=== PATIENT | male | born 1945 | race Caucasian/White ===

== ENCOUNTER 2024-03-30 12:22 | Day surgery (SDC) | payer MEDICARE, OTHER, SELFPAY ==
[2024-03-30] VITALS (26 sets, daily range): BP systolic 97–161; BP diastolic 54–92; BMI 36.6
[2024-03-30 08:34] LABS: % Basophils 0.5 % (0-2); % Immature Granulocytes 0.3 % (0-0.5); % Monocytes 7.6 % (1.7-9.3); % Neutrophils 57.6 % (42.2-75.2); Absolute Basophils 0.1 10^3/uL (0-0.2); Absolute Eosinophils 0.1 10^3/uL (0-0.7); Absolute Monocytes 0.7 10^3/uL (0.1-0.6); Absolute Neutrophils 5.2 10^3/uL (1.4-6.5); Hematocrit 44.4 % (39.0-52.0); Hemoglobin 15.7 g/dL (13.0-18.0); Mean Corp Hgb Conc. 35.4 g/dL (33.0-37.0); Mean Corpuscular Hgb 33.4 pg (27.0-31.0); Mean Corpuscular Volume 94.5 fL (80.0-94.0); Mean Platelet Volume 10.1 fL (7.4-10.4); Nucleated Red Blood Cells % 0 % (-); Platelet Count 178 10^3/uL (130-400); Red Cell Dist. Width 12.8 % (11.5-14.5); White Blood Cell Count 9.1 10^3/uL (4.8-10.8)
[2024-03-30] MEDS: NITROSTAT (SUBLINGUAL) 0.400000000000000022 MG SL (08:37)
[2024-03-30] MEDS: NITRO-BID 1 INCH TOPICAL (08:45)
--- NOTE | 2024-03-30 09:03 | PHANOTE ---
MED REC NOTE- CALLED PATIENT PCP AT [phone] SPOKE TO PATTI AND ASKED HER TO FAX PATIENT MEDICATION LIST OVER TO THE ED FAX MACHINE. AWAITING FAX TO BE SPENT
[2024-03-30 09:11] LABS: ALT (SGPT) 39 U/L (0-50); AST (SGOT) 37 U/L (17-59); Albumin 4.1 g/dl (3.5-5.0); Alkaline Phosphatase 100 U/L (38-126); Blood Urea Nitrogen 23 mg/dl (9-20); Calcium 9.6 mg/dl (8.4-10.2); Carbon Dioxide 27 mmol/L (22-30); Chloride 106 mmol/L (98-107); Estimated Creatinine Clearance 59 ml/min; Glucose 134 mg/dl (70-99); Potassium 4.7 mmol/L (3.5-5.1); Sodium 142 mmol/L (135-145); Total Bilirubin 0.5 mg/dl (0.2-1.3); Total Protein 6.3 g/dl (6.3-8.2); Troponin I < 0.012 ng/ml; eGFR 52.09
--- NOTE | 2024-03-30 09:57 | ED.GENMED ---
History of Present Illness
General
Chief Complaint: Chest Pain
Source: patient
Time Seen by Provider: 03/30/24 08:24
Travel History
Have you had any contact with someone who has COVID-19?: No
Do you have any symptoms of coronavirus? Fever > 100 degrees, chills, cough, shortness of breath, sore throat, loss of taste or smell, muscle aches, or headache?: No
History of Present Illness
History of Present Illness:
78-year-old male who presents with chest pain. Has been ongoing since Tuesday. Patient reports tightness in his chest as well as in his right bicep and in his throat. The patient states it feels similar to the way he felt when he had a stent in
the past. He denies shortness of breath. No palpitations. The pain waxes and wanes. He was sent by his customer engineering specialist for evaluation and saw him this morning. The patient states he has been taking nitroglycerin off and on which does seem to help
the pain. No vomiting. No back pain.
Past History
Past History
ED Past Medical History: CAD, HTN, Hypercholesterolemia and NIDDM
Phy Exam
Physical Exam
Physical Exam:
CONSTITUTIONAL Patient alert and oriented to person, place and time. Well-appearing. Vital signs reviewed. Obese
HEAD atraumatic, normocephalic.
EYES eyelids normal to inspection, Extraocular muscles intact, Conjunctiva normal, Sclera normal.
NECK normal range of motion, Trachea midline, no jugular venous distention.
RESPIRATORY CHEST No respiratory distress noted, Chest expansion equal, Bilateral breath sounds clear.
CARDIOVASCULAR regular rate and rhythm, Heart sounds normal.
ABDOMEN abdomen nontender, Bowel sounds normal. No distention.
BACK normal inspection, no obvious deformities
UPPER EXTREMITY range of motion normal, Motor strength normal, no cyanosis, no edema.
LOWER EXTREMITY range of motion normal, Motor strength normal, no cyanosis, no edema.
NEURO Speech normal, No focal motor deficits, Denis coma scale 15, Memory normal, Cranial Nerves intact to screening exam.
SKIN skin warm, dry, and normal in color.
PSYCHIATRIC patient oriented to person place and time, Normal affect.
Scores
Heart Score for Chest Pain Patients
STEMI patient?: No
History: Highly Suspicious
ECG: Nonspecific Repolarization
Age: >/= 65 years
Risk Factors: >/= 3 Risk Factors or History of CAD
Troponin: </= Normal Limit
Heart Score for Chest Pain Patients: 7
Heart Score Risk: 72.7 % MACE over next 6 weeks
Course
Orders/Labs/Results
Orders:
Orders
03/30/24 08:06
Electrocardiogram (*1) Urgent
Reason for Study: Chest Pain
EKG- Treatment ONCE
03/30/24 08:28
Complete Blood Count/With Diff Urgent
Comprehensive Metabolic Panel Urgent
Troponin I Urgent
03/30/24 08:30
Nitroglycerin Sublingual [Nitrostat (Sublingual)] 1.2 mg .ROUTE .STK-MED ONE
03/30/24 08:33
Nitroglycerin Ointment [Nitro-Bid] 1 inch TOPICAL NOW STA
Nitroglycerin Sublingual [Nitrostat (Sublingual)] 0.4 mg SL [id number] PRN
03/30/24 08:34
CR Chest Portable - 1 View Urgent
Comment:
Reason For Exam: cp
Reason Study Needs to be Portable: Unable to Transport
03/30/24 09:57
Aspirin 325 mg PO NOW STA
03/30/24 Lunch
Cholesterol Lowering
At Your Request: Full Participation
Cholesterol Lowering: Sodium, 2 Gram
03/30/24 10:16
Fentanyl Citrate/Pf [Sublimaze] 100 mcg .ROUTE .STK-MED ONE
Midazolam HCl [Versed] 2 mg .ROUTE .STK-MED ONE
Verapamil Injectable [Isoptin/Verapamil Injection] 5 mg .ROUTE .STK-MED ONE
03/30/24 10:17
Heparin 10,000 units .ROUTE .STK-MED ONE
Heparin 1000 Units/500 ml [Heparin] 1,000 units in 500 ml .ROUTE .STK-MED
Heparin Sodium,Porcine/Ns/Pf [Heparin 2000 Units/1000 ml] 2,000 unit in 1,000 ml .ROUTE .STK-MED
Lidocaine HCl/Pf [Xylocaine-Mpf 1% Vial] 50 mg .ROUTE .STK-MED ONE
Nitroglycerin [Tridil] 1,500 mcg .ROUTE .STK-MED ONE
03/30/24 11:04
Lidocaine HCl/Pf [Xylocaine-Mpf 1% Vial] 50 mg .ROUTE .STK-MED ONE
03/30/24 11:25
Ticagrelor [Brilinta] 180 mg .ROUTE .STK-MED ONE
03/30/24 11:50
Admit Patient As Directed
Co-Sign Provider:
Level of Care: Post Proc/Surg Recovery
Assign to:: IVU
Physician / Group: cbc
Diagnosis: ACS
Reason for Overnight Stay: Standard of Care
Electrocardiogram (*1) Urgent
Reason for Study: Other
Other Reason for Exam: s/p intervention
Comment: cbc
CARDIAC REHAB CONSULT Routine
Co-Sign Provider:
Type of Cardiac Rehab Referral: Outpatient
Diagnosis: CAD w/ Unstable Angina
Date of Diagnosis/Surgery: 03/30/24
Referring Provider: Sherif Gruber
Activity As Directed
Activity Level: Bedrest
Comment: refer to hemostasis device used for bedrest duration, then ambulate ad noelle
Information Assistant Procedure As Directed
Cardiac Cath Procedure: percutaneous coronary intervention
Femoral Artery Hemostasis Method As Directed
Procedure performed:: Percutaneous Coronary Int
Type of femoral hemostasis method used:: Internal Closure Device
Duration of bedrest (hours):: 3
Call provider if:: hematoma present after hemostasis achieved
Head of Bed-Restrictions As Directed
Comment: may elevate head of bed 30 degrees
Intake/ Output As Directed
Frequency: Per unit guidelines
Notify MD As Directed
Notify physician if: immediately for chest pain or bleeding from access site(s)
Site Checks As Directed
Check access site for bleeding/hematoma: Yes
Comment: on arrival, Q15min x4, Q30min x2, Q1 hr x2, Q2 hr x2, Q4 hr or per
protocol
Vascular Checks As Directed
Location: distal to access site - pulse check
Frequency: Other
Comment: on arrival, Q15min x4, Q30min x2, Q1 hr x2, Q2 hr x2, Q4 hr or per protocol
Vital Signs As Directed
Frequency: Other
Additional Instructions:: on arrival, Q15min x4, Q30min x2, Q1 hr x2, Q2 hr x2, then Q4 hr or per unit
protocol
03/30/24 11:53
VTE Contraindication Routine
VTE Mechanical Device Contraindication: Low Risk- LOS < 2 days
Pharmocologic Contraindication: Low Risk- LOS < 2 days
Risk assessment completed and pt is low risk: Yes
03/30/24 12:14
Case Management Consult ONCE
Case Management Consult: Discharge Planning
Comment: cost brilinta
Acetaminophen [Tylenol] 650 mg PO Q4HPRN PRN
03/30/24 12:15
0.9% Sodium Chloride 1000 ml [Nss] 1,000 ml IV PER PROTOCOL
Infusion rate in mL/kg/hr:: 1.5
Infusion rate in mL/hr:: 179
Duration of infusion (hours):: 5
03/30/24 12:16
Echo 2D MMode Color/Doppler Routine
Reason for Study: ACS
Comment: cbc
03/30/24 12:17
Dextrose 50%-Water [Dextrose 50% Syringe] 12.5 grams IV [id number] PRN
Glucagon [GlucaGen] 1 mg IM PRN PRN
Bedside Glucose Monitoring As Directed
Frequency: AC&HS
Additional Instructions:: Change to q6h if pt on TPN, tube feeding or not eating
03/30/24 13:00
Flush (0.9% Sodium Chloride) [Flush (Nss)] See Dose Instructions IV PER PROTOCOL
03/30/24 13:16
Furosemide [Lasix] 40 mg IV ONCE ONE
03/30/24 15:05
Case Management Consult ONCE
Case Management Consult: Other
Comment: brilinta cost
03/30/24 16:30
Insulin Aspart Corrective Mod [Novolog Flexpen-Moderate Resistance] See Protocol SC AC
03/30/24 18:00
Atorvastatin [Lipitor] 40 mg PO QPM
03/30/24 20:00
Ticagrelor [Brilinta] 90 mg PO BID
03/31/24 06:00
Electrocardiogram (*1) IN AM
Reason for Study: Other
Other Reason for Exam: s/p intervention
Comment: cbc
Basic Metabolic Panel IN AM
Cardiovascular Evaluation IN AM
Complete Blood Count/No Diff IN AM
Glycohemoglobin (HgbA1c) IN AM
03/31/24 08:00
Allopurinol [Zyloprim] 200 mg PO DAILY
Aspirin Low Dose EC [Aspir Low (Enteric Coated)] 81 mg PO DAILY
Diltiazem Extended Release [Cardizem Cd] 120 mg PO DAILY
Empagliflozin [Jardiance] 10 mg PO DAILY
Furosemide [Lasix] 40 mg PO DAILY
Lisinopril [Zestril] 10 mg PO DAILY
Metoprolol Xl [Toprol Xl] 50 mg PO DAILY
Abnormal Lab Results
03/30/24 03/30/24 03/30/24
08:28 11:23 12:06
MCV 94.5 H fL
(80.0-94.0)
MCH 33.4 H pg
(27.0-31.0)
Absolute Monos (auto) 0.7 H 10^3/uL
(0.1-0.6)
BUN 23 H mg/dl
(9-20)
Creatinine 1.4 H mg/dL
(0.7-1.3)
Glucose 134 H mg/dl
(70-99)
POC ACT Low Range 380 H Seconds 279 H Seconds
(116-155) (116-155)
03/30/24 08:28
03/30/24 08:28
Vital Signs
Initial and Last Documented VS:
Initial Vital Signs
Temp Pulse Resp BP Pulse Ox
98.8 F 61 20 161/81 96
03/30/24 08:18 03/30/24 08:18 03/30/24 08:18 03/30/24 08:18 03/30/24 08:18
Last Documented Vital Signs
Temp Pulse Resp BP Pulse Ox
98.8 F 61 16 121/66 94
03/30/24 08:18 03/30/24 10:00 03/30/24 10:00 03/30/24 10:00 03/30/24 10:00
MDM/Problems Addressed
MDM/Problems Addressed:
Unstable angina
*Radiology
Radiology exam reviewed: all reviewed NAD by ED Provider
*Pulse Oximetry
Patient hypoxic: no
*EKG
Interpreted by ED Provider?: Yes
Interpretation: normal
Rate: normal
Rhythm: sinus
Interval: normal interval
QRS Pattern: normal QRS
Ischemia: no ischemia
*Sleep Scientist Interpretation
Rate: normal
Interpretation: normal
Rhythm: sinus
*Critical Care Note
Total Time (30-74mins, 75-104mins- exclusive of procedures): Not Applicable
Data Reviewed
Review of Other/Old Records Reveals: Operative Reports (Cath report reviewed from 2014.) and Other
Source: patient
Prescriptions/Medications Considered But Not Given:
Consider heparin. Seen by cardiology, recommends hold heparin
Patient Management
Discussion with other providers: Creping Machine Operator Helper (Cardiology)
Escalation/DeEscalation of care consider admission/obs:
Seven 8-year-old male with a history of CAD who presents with progressive anginal symptoms. Improved after nitroglycerin. Seen by cardiology recommends cardiac catheterization. Currently stable and pain-free
ED Attending Note
-
Portions of this chart may have been created with voice recognition software.� Occasional wrong word or��sound alike� substitutions may have occurred due to the inherent limitations of voice recognition software.
Discharge Plan
Departure
Patient Disposition: ASSOCIATE THEATRE PROFESSOR
Date of Disposition: 03/30/24
Time of Disposition: 09:57
Admit to: labor standards director
Presentation/result/management discussed w/ accepting MD/DO: CBC cards
Discharge Problem:
Unstable angina
Interventions
Interventions:
*Risk Screen - Suicide Last Done: 03/30/24 08:22
*General Assessment Last Done: 03/30/24 08:22
*Neglect/Abuse Screening Last Done: 03/30/24 08:22
ED- Fall Risk Assessment Last Done: 03/30/24 08:22
*ED COVID-19 Vaccine History Last Done: 03/30/24 08:18
*Nursing Disposition Last Done: 03/30/24 10:44
ED- Cardiac Assessment Last Done: 03/30/24 08:22
Discharge Date and Time
Discharge Date/Time: 03/30/24 10:44
--- NOTE | 2024-03-30 09:59 | CON.CAR ---
Consultation
Consultation Request
Date/Time Consultation Requested: March 30, 2024 8 AM
Date/Time Consultation Performed: March 30, 2024 9:59 AM
Requesting Provider: Emergency room
Performing Provider: Jmaes De Dios
Reason for Consultation: Chest pain
Medical History
-
Chief Complaint: chest pain
History of Present Illness:
78-year-old man with history of CAD status post RCA stenting, dyslipidemia, hypertension, and likely type 2 diabetes who is here for evaluation of chest discomfort. Omar tells me that on Tuesday he developed chest pain similar to when he had
stent placement. He describes it as squeezing and tightness with radiation to his left shoulder. It was relieved with nitroglycerin. Interestingly, he has been taking nitro over the last 3 to 4 days and today he has felt the best. He went in and
saw his family doctor who referred him to the emergency room for heart catheterization. I spoke with Dr. Ly interventional cardiology and he will be sent for heart catheterization. Otherwise, he also noticed some mild lower extremity edema.
This seems to be a little bit worse than normal. He has no other concerning signs or symptoms.
Past Medical History
Past Medical History: Other (CAD status post RCA stenting, dyslipidemia, hypertension, and likely type 2 diabetes )
Past Surgical History: None
Social History
Tobacco: Non-Smoker
Alcohol: None
Drug: None
Family History
Family History: Reviewed & Not Pertinent
Allergies / Home Medications
Allergy/AdvReac Type Severity Reaction Status Date / Time
No Known Allergies Allergy Unverified 03/30/24 08:15
�Medication �Instructions �Recorded �Confirmed �Type
aspirin 81 mg tablet,delayed 81 mg PO DAILY 10/24/14 03/30/24 History
release
atorvastatin 40 mg tablet 40 mg PO QPM 10/24/14 03/30/24 History
diltiazem HCl 120 mg 120 mg PO DAILY 10/24/14 03/30/24 History
capsule,extended release 24 hr
(Cartia XT)
metoprolol succinate 50 mg 50 mg PO DAILY 10/24/14 03/30/24 History
tablet,extended release 24 hr
nitroglycerin 0.4 mg sublingual 0.4 mg sublingual [id number] PRN 10/24/14 03/30/24 History
tablet chest pain
omega-3 acid ethyl esters 1 gram 2 gm PO DAILY 10/24/14 03/30/24 History
capsule (Lovaza)
allopurinol 100 mg tablet 200 mg PO DAILY 03/30/24 03/30/24 History
empagliflozin 10 mg tablet 10 mg PO DAILY 03/30/24 03/30/24 History
(Jardiance)
folic acid 400 mcg tablet 0.8 mg PO DAILY 03/30/24 03/30/24 History
lisinopril 10 mg tablet 10 mg PO DAILY 03/30/24 03/30/24 History
metformin 500 mg tablet 500 mg PO BID 03/30/24 03/30/24 History
Review of Systems
-
All other systems: Negative unless noted
Physical Exam
Vital Signs
Temp Pulse Resp BP Pulse Ox
98.8 F 64 15 111/58 93
03/30/24 08:18 03/30/24 09:15 03/30/24 09:15 03/30/24 09:15 03/30/24 09:15
Lab Results
03/30/24 08:28
03/30/24 08:28
Troponin I < 0.012 ng/ml 03/30/24 08:28
Physical Exam
General: Well Developed, Well Nourished and No Apparent Distress
HEENT: Normocephalic
Respiratory: Clear and Non Labored Respirations
Cardiac: S1/S2 (distant heart sounds ) and Regular Rhythm
GI: Soft
Musculoskeletal: Edema (1-2+)
Skin: Warm and Dry
Neuro: AO x 3
Psych: Calm
Impression / Plan
-
78-year-old man with history of CAD status post RCA stenting, dyslipidemia, hypertension, and likely type 2 diabetes who is here for evaluation of chest discomfort.
CAD status post RCA stent
-Proceed with heart catheterization for further evaluation
-Patient received 325 aspirin in the emergency room
-Continue atorvastatin Dilt lisinopril and metoprolol
Hypertension
Continue metoprolol lisinopril and diltiazem
Type 2 diabetes
-Continue Jardiance hold metformin
Further recommendations after coronary angiography
Data Reviewed
-
EKG: Tracing Personally Visualized and interpreted (sr)
Labs: Labs Reviewed by me
[2024-03-30] MEDS: ASPIRIN 325 MG PO (10:15)
[2024-03-30 11:30] LABS: ACT-LR - POC 380 Seconds (116-155)
[2024-03-30 12:12] LABS: ACT-LR - POC 279 Seconds (116-155)
--- NOTE | 2024-03-30 12:47 | ITS.CL.ANGIO ---
Senior Technologist - Angioplasty
Angioplasty
Procedure Report:
CARDIAC CATHETERIZATION REPORT
Date of Procedure: 03/30/2024
Referring: Sandy Almaguer M.D.
INDICATION: Unstable angina.
PROCEDURE:
1. Left heart catheterization
2. Coronary angiography.
3. Successful PCI of the distal RCA.
4. Successful PCI of the proximal/mid RCA.
ACCESS:
Attempted right radial access. The artery could be punctured with brisk blood flow, but a wire could not be advanced beyond the proximal forearm.
6 Liberian right common femoral artery using modified Seldinger technique with a micropuncture kit under ultrasound guidance.
CATHETERS:
1. 5 Liberian JR4.
2. 5 Liberian JL 4.
3. 6 Liberian JR4 guiding catheter.
HEMODYNAMIC DATA
Weight (kg): 118.8
AO (s/d/x, mmHg): 110/58/77
LV (s/x mmHg): 119/20
LEFT VENTRICULOGRAPHY: Not performed.
CORONARY ANGIOGRAPHY
Dominance: Right.
Left Main: Normal size, bifurcating vessel. There is no coronary artery disease.
LAD: Normal size vessel giving rise to 1 significant diagonal. There are minor luminal irregularities.
Ramus: Congenitally absent.
Circumflex: Large size, nondominant vessel giving rise to a single obtuse marginal. There is a 50 to 60% lesion in the proximal circumflex, before the origin of the obtuse marginal. There is a 20% lesion in the proximal margin of OM1.
RCA: Normal size, dominant vessel. There is a long, 70% lesion in the proximal vessel leading into the mid RCA. There is a 90% lesion in the mid RCA with plaque extending towards the crux. There is a 70% distal RCA lesion, proximal to the
origin of the RPDA.
INTERVENTION(S)
1. Successful PCI of the 70% distal RCA lesion (Xience Skypoint 2.5 x 23 HEATHER, postdilated with a 3.0 NC balloon in the proximal margin) with reduction in stenosis to 0%, maintaining KYLIE-3 flow.
2. Successful PCI of the 70% proximal RCA stenosis and 90% mid RCA stenosis (overlapping Xience Skypoint 3.0 x 38 HEATHER, 3.5 x 12 HEATHER, 3.5 x 15 HEATHER, postdilated with a 3.5 NC balloon) with reduction in stenosis to 0%, maintaining KYLIE-3 flow.
Narrative:
The decision was made to proceed with percutaneous coronary intervention. The diagnostic catheter was removed over a wire and a 6Fr JR4 guiding catheter was advanced to the aortic root and seated in the right coronary artery. Additional heparin was
given and a Power Turn Flex wire was advanced into the distal RCA. The 90% mid RCA lesion was predilated with a 2.0 x 12 semi-compliant balloon to 12 zaria to allow for downstream visualization as presence of the balloon was occlusive. The balloon
was then advanced to the distal RCA lesion. The 70% distal RCA lesion was predilated to 12 zaria. The semi-compliant balloon was removed and a Xience kiersten point 2.5 x 23 drug-eluting stent was advanced into the distal RCA. The stent was deployed at
12 atmospheres. The 2.5 x 23 stent balloon was used to predilate the proximal and mid RCA lesions. The stent balloon was removed.
We then turned our attention to the confluent proximal and mid RCA lesion. A Xience Skypoint 3.0 x 38 drug-eluting stent was advanced. After placing the stent and what we thought was the distal margin of the lesion, the stent was deployed at 12
zaria. The stent balloon was withdrawn.
A 3.0 x 12 noncompliant balloon was advanced but would not pass the midportion of the 3.0 stent to post dilate the distal RCA stent. A 6 Liberian guide liner was advanced over the 2.0 x 12 balloon which was then replaced by the 3.0 x 12 NC balloon.
This time, the balloon was able to be advanced into the distal RCA stent and the proximal margin of that stent was postdilated to 14 zaria.
The 3.0 x 12 NC balloon was withdrawn and a 3.5 x 20 noncompliant balloon was advanced with the assistance of the GuideLiner. The entire stented segment in the proximal and mid vessel was postdilated to 14 zaria. Angiography was repeated,
demonstrating that there was some residual disease distal to the stented segment but that the post dilation diameter appeared appropriate. A Xience kiersten point 3.5 x 12 drug-eluting stent was advanced with the assistance of the GuideLiner. The stent
was deployed with its proximal margin overlapping the distal margin of the proximal stent. The stent balloon was withdrawn and the entire stented segment was postdilated with a 3.5 x 20 NC balloon to 15 zaria.
Angiography was repeated again, this time raising concern for plaque extension in the proximal margin of the artery. The decision was made to treat this area as well. A Xience Skypoint 3.5 x 15 drug-eluting stent was advanced and deployed in an
overlapping fashion with the mid RCA stent. Once again, the stent balloon was removed and the 3.5 x 20 NC balloon was used to post dilate the stented segments to 15 zaria. The noncompliant balloon was withdrawn as was the GuideLiner.
Angiography was performed in orthogonal views, confirming good stent expansion and an excellent angiographic result. The coronary wire was withdrawn and the guide was disengaged from the artery. The catheter was removed over a standard J-wire.
Closure Device: 6 Liberian Angio-Seal.
Radiation (mGy): 1674.81
DAP (cm2.Gy): 86.3441
Fluoroscopy time (minutes): 18.6
Sedation time (minutes): 90
CONCLUSIONS
1. Right dominant circulation with minor luminal irregularities in the LAD, a 50-60% lesion in the proximal circumflex (similar to cardiac catheterization in 2015), a 70% distal RCA lesion, proximal to the origin of the RPDA status post accessible
PCI (Xience guide point 2.5 x 23 HEATHER, postdilated with a 3.0 NC balloon in the proximal margin) and a confluent 70% proximal RCA lesion and 90% mid RCA lesion status post successful PCI (overlapping Xience Skypoint 3.0 x 38 HEATHER, 3.5 x 12 HEATHER, 3.5 x
15 HEATHER, postdilated with a 3.5 NC balloon) with reduction in all stenoses to 0%, maintaining KYLIE-3 flow.
2. Moderately elevated filling pressures (LVEDP = 20 mmHg at 118.8 kg).
RECOMMENDATIONS:
1. Expectant management after cardiac catheterization via right common femoral approach.
2. Limited weight bearing on the right wrist for one week.
3. Dual antiplatelet therapy with aspirin and ticagrelor for at least 12 months, followed by aspirin indefinitely.
4. Continuous monitoring of symptoms. If the patient were to develop recurrent angina, we would consider IFR/PCI of the circumflex lesion.
5. Aggressive risk factor modification.
6. We will start diuresis given his elevated filling pressures. Continue guideline directed medical therapy including SGLT2 inhibitor.
7. Echocardiogram ordered and pending.
8. Referral to cardiac rehab.
Copy to: [ ]
Sherif Gruber DO, FACC, FACP
--- NOTE | 2024-03-30 13:25 | PTCARENOTE ---
Received patient from label printer, lying flat in bed. Right femoral dressing is dry and intact with strong pedal pulse present. Reviewed post cath restrictions, oriented to the room and plan of care, call robertson in reach.
--- NOTE | 2024-03-30 15:44 | CM ---
Chart reviewed. Patient is independent of ADLS, lives with his in a [address], 1st floor set u, [address] [place], 0 DME. Plan is for the patient to return home. CM to follow
--- NOTE | 2024-03-30 15:45 | CM ---
Pricing on Brilinta through the patient's PP is $35 a month or $70 for 90 day. Patient is agreeable. I placed a free 30 day coupon in the red discharge folder. Brilinta is in stock at the patient's [facility]
[2024-03-30] MEDS: LASIX 40 MG IV (16:00)
--- NOTE | 2024-03-30 16:36 | PTCARENOTE ---
Dressing right groin is dry and intact, denies any pain or discomfort. Received IV lasix as ordered, oob to the bathroom.
[2024-03-30 17:35] LABS: Glucose - Point of Care 112 mg/dl (70-99)
[2024-03-30] MEDS: LIPITOR 40 MG PO (18:07)
[2024-03-30] MEDS: NOVOLOG FLEXPEN-MODERATE RESISTANCE SC (18:07)
[2024-03-30] MEDS: BRILINTA 90 MG PO (20:17)
[2024-03-30 21:55] LABS: Glucose - Point of Care 140 mg/dl (70-99)
--- NOTE | 2024-03-31 00:43 | PTCARENOTE ---
Pt. has no complaints of any chest pain/discomfort so far this shift; VSS. Right groin cath site CDI with no S&S hematoma, pedal pulses palpable. VSS; NSR on the monitor. Pt. independent and ambulatory in room, voiding large amounts of urine at
beginning of shift following Lasix administration. Pt. currently sleeping.
[2024-03-31 04:12] VITALS: BP 152/75
[2024-03-31 05:06] LABS: Hematocrit 43.5 % (39.0-52.0); Hemoglobin 15.6 g/dL (13.0-18.0); Mean Corp Hgb Conc. 35.9 g/dL (33.0-37.0); Mean Corpuscular Hgb 33.8 pg (27.0-31.0); Mean Corpuscular Volume 94.2 fL (80.0-94.0); Mean Platelet Volume 10.5 fL (7.4-10.4); Platelet Count 164 10^3/uL (130-400); Red Blood Cell Count 4.62 10^6/uL (4.70-6.10); Red Cell Dist. Width 12.7 % (11.5-14.5); White Blood Cell Count 10.8 10^3/uL (4.8-10.8)
[2024-03-31 05:37] LABS: Blood Urea Nitrogen 24 mg/dl (9-20); Calcium 9.8 mg/dl (8.4-10.2); Carbon Dioxide 25 mmol/L (22-30); Chloride 101 mmol/L (98-107); Estimated Creatinine Clearance 75 ml/min; Glucose 137 mg/dl (70-99); HDL Cholesterol 40 mg/dl; LDL Cholesterol, Calculated 65 mg/dl; Sodium 137 mmol/L (135-145); Total Cholesterol 142 mg/dl (50-199); Triglyceride 188 mg/dl (10-149); Very Low Density Lipoprotein 37 mg/dl (0-30); eGFR > 60.00
[2024-03-31 06:59] VITALS: BP 148/77
[2024-03-31 07:02] LABS: Glucose - Point of Care 168 mg/dl (70-99)
--- NOTE | 2024-03-31 07:46 | W.PN.CD ---
Addendum entered and electronically signed by James Gillespie MD 03/31/24 11:30:
Patient seen and evaluated personally. I agree with the note, documentation, plan of care and physical examination.
78-year-old gentleman with coronary disease underwent PCI to RCA with extensive stenting of the vessel. Patient is in need of aspirin/Brilinta for a year. There is residual circumflex disease left but remains unchanged since 2014.
Patient is stable for discharge from cardiac standpoint.
Original Note:
Today's Communication / Plan
-
Discharge planning
Impression / Plan
-
BACKGROUND: 78-year-old man with history of CAD status post RCA stenting, dyslipidemia, hypertension, and likely type 2 diabetes who presented with chest discomfort
CAD
-RCA stent in 1995, patent by [facility] 2014
-S/P PCI dRCA &pRCA (Dr. Gruber, 03/30/2024), DAPT (ASA & ticagrelor for 12 months then ASA indefinitely)
-Residual 50-60% lesion in the proximal circumflex (similar to cardiac catheterization in 2015)
-Continue atorvastatin (LDL 65)
Hypertension
-Continue metoprolol, lisinopril, and diltiazem
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
NIDDM, type 2, on oral agents, Hgba1c pending, resume metformin tomorrow
SUBJECTIVE:
Denies CP, SOB, and dizziness.
Physical Exam
Vital Signs/Labs
Vital Signs
Temp Pulse Resp BP Pulse Ox
98.4 F 74 20 152/75 97
03/31/24 04:13 03/31/24 04:12 03/31/24 04:13 03/31/24 04:12 03/31/24 04:13
03/30/24 03/31/24 04/01/24
06:59 06:59 06:59
Actual Weight 119.1 kg
03/31/24 04:28
03/31/24 04:28
Triglycerides 188 mg/dl (10-149) H 03/31/24 04:28
LDL Cholesterol, Calc 65 mg/dl 03/31/24 04:28
VLDL Cholesterol, Calc 37 mg/dl (0-30) H 03/31/24 04:28
HDL Cholesterol 40 mg/dl 03/31/24 04:28
LAB Results
03/30/24
08:28
Troponin I < 0.012
Physical Exam
Constitutional: No acute distress and Comfortable
EENT: Anicteric and Moist mucous membranes
Cardiovascular: Pedal edema is absent, S1S2 is normal and Murmur/rub/gallop absent
Respiratory: Respiratory effort normal and Lungs clear to auscul.
GI: Soft, Distention absent, Flat, Non tender and Normal bowel sounds
Neuro/Psych: AO x 3
Other: Skin (warm and dry) and Cath Site (right femoral site without hematoma/bruit)
Data Reviewed
-
Date of Service: March 31, 2024
EKG: Report Reviewed by me
Labs: Labs Reviewed by me
--- NOTE | 2024-03-31 08:18 | W.DS.TRANS ---
DC Summary - [employer]
-
Discharge Instructions:
Discharge Diagnosis/Procedures Angioplasty with stent x4 to Right Coronary
artery
Diet Low Cholesterol,Diabetic, Carb Controlled
Activity No strenuous activity
Additional Activity See attached instructions
Driving Restrictions No driving for 24 hours
Bathing Restrictions OK to Shower
Other Services Cardiac Rehab
Instructions:
Stand-Alone Forms: DC Instructions- Cath/EP Lab
Changes to Home Medications: Yes
Discharge Medications:
DC Medications w/original date entered in [email or web address]
aspirin 81 mg tablet,delayed release 81 mg PO DAILY 10/24/14
atorvastatin 40 mg tablet 40 mg PO QPM 10/24/14
diltiazem HCl 120 mg capsule,extended release 24 hr (Cartia XT) 120 mg PO DAILY 10/24/14
metoprolol succinate 50 mg tablet,extended release 24 hr 50 mg PO DAILY 10/24/14
nitroglycerin 0.4 mg sublingual tablet 0.4 mg sublingual [id number] PRN chest pain 10/24/14
omega-3 acid ethyl esters 1 gram capsule (Lovaza) 2 gm PO DAILY 10/24/14
allopurinol 100 mg tablet 200 mg PO DAILY 03/30/24
empagliflozin 10 mg tablet (Jardiance) 10 mg PO DAILY 03/30/24
folic acid 400 mcg tablet 0.8 mg PO DAILY 03/30/24
lisinopril 10 mg tablet 10 mg PO DAILY 03/30/24
metformin 500 mg tablet 500 mg PO BID 03/30/24
ticagrelor 90 mg tablet (Brilinta) 90 mg PO BID #180 tabs 03/30/24
Home Medication Changes
Brilinta is NEW
Pending Results: Yes (Hgba1c)
[2024-03-31] MEDS: NOVOLOG FLEXPEN-MODERATE RESISTANCE 1 UNITS SC (08:52)
[2024-03-31] MEDS: ZYLOPRIM 200 MG PO (08:53)
[2024-03-31] MEDS: JARDIANCE 10 MG PO (08:53)
[2024-03-31] MEDS: ZESTRIL 10 MG PO (08:53)
[2024-03-31] MEDS: LASIX 40 MG PO (08:53)
[2024-03-31] MEDS: TOPROL XL 50 MG PO (08:54)
[2024-03-31] MEDS: CARDIZEM CD 120 MG PO (08:54)
[2024-03-31] MEDS: ASPIR LOW (ENTERIC COATED) 81 MG PO (08:54)
[2024-03-31] MEDS: BRILINTA 90 MG PO (08:54)
[2024-03-31 08:58] VITALS: BP 150/77
[2024-03-31 09:18] LABS: Glycohemoglobin (HgbA1c) 7.4 % (4.0-5.6)
--- NOTE | 2024-03-31 11:37 | PTCARENOTE ---
03/31/24 1120am Discharge order written. Reviewed discharge instructions, medications, catheterization care once home, and follow up appointments. Encouraged questions, support given. IV and Telem pack removed. Pt escorted out in wheelchair by RN
== END 2024-03-31 11:30 | disposition home or self-care (01) ==
LOC: CATH 12:22
PROVIDERS: Emergency Medicine; Nurse Practitioner Adult Health; ATTENDING PHYSICIAN Internal Medicine Cardiovascular Disease; EMERGENCY PHYSICIAN Emergency Medicine; FAMILY PHYSICIAN Family Medicine
DX: I25.110 Atherosclerotic heart disease of native coronary artery with unstable angina pectoris (principal); Z95.5 Presence of coronary angioplasty implant and graft; I25.2 Old myocardial infarction; I10 Essential (primary) hypertension; E78.00 Pure hypercholesterolemia, unspecified; E11.9 Type 2 diabetes mellitus without complications; M10.9 Gout, unspecified; Z79.82 Long term (current) use of aspirin; Z79.84 Long term (current) use of oral hypoglycemic drugs; Z79.02 Long term (current) use of antithrombotics/antiplatelets
CPT/HCPCS: C1725; C1894; 71045; 80048; 80053; 80061; 82962; 83036; 84484; 85025; 85027; 85347; 93005; 93306; 93458; 99285; C1760; C1874; C9600; Q9967